=== PATIENT | female | born 1945 | race Caucasian/White ===

== ENCOUNTER 2017-05-26 12:15 | Emergency (ER) | payer MEDICARE, MEDICAID ==
[~2017-05-26] VITALS: Ht 157.5 cm; Wt 68.0 kg
[~2017-05-26 12:15] MED LIST: ASPI-1159 PO; CARV12.545 PO; CLON0.2T PO; ESOM40CA PO; INSU100I19 SQ; LEVO75TA7 PO; LISI40TA4 PO; METF10002 PO; PRAV20TA57 PO; [UNRECOGNIZED DRUG - CODE] IJ
[2017-05-26] MEDS ORDERED: ONDANSETRON 4MG ODT PO ONE (17:00)
[2017-05-26] MEDS ORDERED: HYDROCODONE/ACETAMINOPHEN 5/325MG TABLET PO ONE (17:00)
[2017-05-26 19:00] VITALS: BP 180/75
== END 2017-05-26 19:00 | disposition home or self-care (01) ==
LOC: ER 12:15
DX: M54.40 Lumbago with sciatica, unspecified side (principal); E11.9 Type 2 diabetes mellitus without complications; I10 Essential (primary) hypertension; E78.00 Pure hypercholesterolemia, unspecified; E03.9 Hypothyroidism, unspecified; Z79.82 Long term (current) use of aspirin; Z79.4 Long term (current) use of insulin
CPT/HCPCS: 72148; 93970; 99284